=== PATIENT | male | born 1990 | race Caucasian/White ===

== ENCOUNTER 2022-06-07 14:52 | Outpatient (REF) | payer BC, SELFPAY ==
[2022-06-07 16:48] LABS: Free T4 (Free Thyroxine) 1.01 ng/dL (0.71-1.85); Thyroid Stimulating Hormone 5.21 uIU/mL (0.32-4.0)
== END 2022-06-07 14:53 | disposition home or self-care (01) ==
LOC: HO.LAB 14:52
PROVIDERS: PCP Internal Medicine; Visit Provider Internal Medicine Endocrinology, Diabetes & Metabolism
DX: E03.9 Hypothyroidism, unspecified (principal)
CPT/HCPCS: 36415; 84439; 84443

== ENCOUNTER → 2022-06-13 10:27 | Outpatient (BNVA) | payer BC, SELFPAY | PROVIDERS: PCP Internal Medicine; Visit Provider Internal Medicine Endocrinology, Diabetes & Metabolism | DX: Z13.89 Encounter for screening for other disorder (principal) ==

== ENCOUNTER 2022-09-04 11:43 | Outpatient (REF) | payer BC, SELFPAY ==
[2022-09-04 13:19] LABS: Free T4 (Free Thyroxine) 1.02 ng/dL (0.71-1.85); Thyroid Stimulating Hormone 2.26 uIU/mL (0.32-4.0)
== END 2022-09-04 11:44 | disposition home or self-care (01) ==
LOC: HO.LAB 11:43
PROVIDERS: PCP Internal Medicine; Visit Provider Internal Medicine Endocrinology, Diabetes & Metabolism
DX: E03.9 Hypothyroidism, unspecified (principal)
CPT/HCPCS: 36415; 84439; 84443

== ENCOUNTER 2022-09-05 08:57 | Outpatient (AMB) | payer BC, SELFPAY ==
[2022-09-05 08:58] VITALS: BP 132/68; PULSE 80; BMI 58.1
--- NOTE | 2022-09-05 08:58 | MHC.OFFVIS ---
Intake Vital Signs 09/05/22 08:58 Height 6 ft 0.39 in Weight 432 lb 12.278 oz BMI 58.1 BP 132/68 Blood Pressure Location Rt radial Position Sitting Pulse 80 Pulse Source Pulse Oximeter Intake Visit Reasons: f/u hypothyroidism Intake Note: Patient present for Hypothyroidism follow up visit. [employer] Specialist Required: No Accompanied by: Self / Same As Patient Allergies bupropion [From WELLBUTRIN] Allergy (Unknown, Verified 09/05/22 09:01) RED AND ITCHY EYES lamotrigine [From LAMICTAL] Allergy (Unknown, Verified 09/05/22 09:01) BACK PAIN Wellbutrin Allergy (Unknown, Uncoded 09/05/22 09:01) itching, swollen eyes Medication List - Last Reviewed 09/05/22 by CHRISTIANO Long amlodipine 10 mg PO DAILY aspirin 81 mg PO DAILY indapamide 2.5 mg PO QAM levothyroxine 150 mcg PO DAILY lisinopril 10 mg PO DAILY HPI HPI Comments History of Present Illness Details 32 YO M with who is seen in consultation at the request of his PCP for Hyothyroidism. First diagnosed with Hypothyroidism 12-13 yrs . Never saw endo Currently using thyroid hormone. Levothyroxine 100 ug . On 100 ug for 1 yr Denies +fatigue, -weight gain,- cold intolerance, +dry skin,- hair loss,- constipation. There is no hx of hyperlipidemia . Denies obstructive sx of goiter . Denies consuming any kelp or seaweed. Denies taking amiodarone. Biotin: No Labs: [facility], [facility] Medical History (Updated 12/12/21 @ 10:37 by Anup Rodriguez MD) Hypothyroid Surgical History History of wisdom tooth extraction Hx of inguinal hernia surgery Family History Mother No known health problems Social History Alcohol intake: current Alcohol intake frequency: holidays/special occasions only Patient Tobacco Use Status: Current everyday Tobacco user e-Cigarette/Vaping Use: Currently Using Physical Exam Vital Signs: BMI result Body Mass Index 58.1 HEENT reveals absence of lid lag , stare or proptosis or eyebrow loss. Thyroid gland measure 15 gms . No nodules or tenderness palpated. There is no cervical adenopathy palpated. Lungs CTA. Heart S1, S2 Reg R/R -M/R/G. Abdominal exam benign. Skin exam reveals absence of dryness or thyroid dermopathy or vitiligo. Nail exam reveals absence of thyroid acropachy or oncholysis. Neurologic exam reveals 2+ reflexes . Muscle Strength is 5/5 proximally. There are no tremors in upper extremities. 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 He appears to be clinically and biochemically euthyroid Plan is to continue current therapy. At this point, patient returned to the care of his primary care provider. If his hypothyroidism becomes difficult to control, he can be returned back to endocrinology Coding Level of Care Code Est Pt Level 3 (02272) Diagnoses Hypothyroid E03.9
== END 2022-09-05 09:08 | disposition home or self-care (01) ==
PROVIDERS: PCP Internal Medicine; Visit Provider Internal Medicine Endocrinology, Diabetes & Metabolism
DX: E03.9 Hypothyroidism, unspecified (principal)
CPT/HCPCS: 99213

== ENCOUNTER → 2022-09-05 08:57 | Outpatient (BNVA) | payer BC, SELFPAY | PROVIDERS: Visit Provider Internal Medicine Endocrinology, Diabetes & Metabolism ==